=== PATIENT | male | born 1995 ===

== ENCOUNTER 2024-12-03 11:06 | Outpatient (REF) | payer SELFPAY ==
[2024-12-03 13:58] LABS: Cholesterol 157 mg/dL (<200); HDL Cholesterol 46 mg/dL (>40); LDL Cholesterol Calculated 103 mg/dL (<100); Triglycerides 42 mg/dL (<150)
[2024-12-03 16:21] LABS: CT PCR NOT DETECTED (Not Detect.); NG PCR NOT DETECTED (Not Detect.)
[2024-12-04 09:20] LABS: HIV AB/AG Nonreactive (Nonreactive); HIV Num 1 0.05 S/CO (0.00-0.99); ~HepC Num1 0.12 S/CO (0.00-0.79); ~Hepatitis C Antibody Nonreactive (Nonreactive)
[2024-12-04 09:55] LABS: Syphilis Screen Nonreactive (Nonreactive)
== END 2024-12-03 11:07 | disposition home or self-care (01) ==
LOC: HO.HHCL 11:06
PROVIDERS: Visit Provider Family Medicine
DX: Z00.00 Encounter for general adult medical examination without abnormal findings (principal); A64 Unspecified sexually transmitted disease
CPT/HCPCS: 80061; 86780; 86803; 87389; 87491; 87591

== ENCOUNTER 2024-12-04 12:29 | Outpatient (REF) | payer MEDICAID, SELFPAY | END 2024-12-04 12:30 | disposition home or self-care (01) | LOC: HO.HHCLNP 12:29 | PROVIDERS: Visit Provider Family Medicine | DX: Z11.3 Encounter for screening for infections with a predominantly sexual mode of transmission (principal); R23.8 Other skin changes | CPT/HCPCS: 36415; 87255 ==